=== PATIENT | female | born 1975 | race African-American/Black ===

== ENCOUNTER → 2016-11-12 | Emergency (ER) | payer OTHER, BC | END | disposition home or self-care (01) | LOC: ER 15:38 | DX: S46.912A Strain of unspecified muscle, fascia and tendon at shoulder and upper arm level, left arm, initial encounter (principal); S83.91XA Sprain of unspecified site of right knee, initial encounter; F32.9 Major depressive disorder, single episode, unspecified; F41.9 Anxiety disorder, unspecified; I10 Essential (primary) hypertension; W07.XXXA Fall from chair, initial encounter | CPT/HCPCS: 73030-LT; 73560-RT; 99284 ==